=== PATIENT | female | born 1955 ===

== ENCOUNTER 2017-11-17 09:02 | Day surgery (SDC) | payer OTHER ==
[2017-11-17] MEDS ORDERED: Lactated Ringer's 500 ML IV ONE (09:14)
[2017-11-17] MEDS ORDERED: Propofol 10 mg/ml Inj (20 ML) ONE (09:52)
[2017-11-17 11:25] VITALS: TEMP 97
[2017-11-17 11:35] VITALS: BP 141/77; PULSE 76; RESP 18; O2SAT 99
== END 2017-11-17 12:07 | disposition home or self-care (01) ==
LOC: H.ENDO 09:02
PROVIDERS: ATTEND Internal Medicine Gastroenterology
DX: K29.50 Unspecified chronic gastritis without bleeding (principal); K31.89 Other diseases of stomach and duodenum; R10.13 Epigastric pain; I10 Essential (primary) hypertension; E11.9 Type 2 diabetes mellitus without complications; Z79.84 Long term (current) use of oral hypoglycemic drugs
CPT/HCPCS: 43239; 88305; J2001; J2704; J7120